=== PATIENT | male | born 1960 | race Caucasian/White ===

== ENCOUNTER 2021-04-24 15:13 | Emergency (ER) | payer MEDICARE ==
[~2021-04-24 15:13] MED LIST: FLOMAX 0.4 MG0.4 MG PO; PERCOCET 5-3251 EACH PO
== END 2021-04-24 15:58 | disposition home or self-care (01) ==
LOC: FER 15:13
DX: S01.01XA Laceration without foreign body of scalp, initial encounter (principal); W20.8XXA Other cause of strike by thrown, projected or falling object, initial encounter; Y92.009 Unspecified place in unspecified non-institutional (private) residence as the place of occurrence of the external cause
CPT/HCPCS: 70450; 72125